=== PATIENT | male | born 1990 ===

== ENCOUNTER → 2021-04-12 12:11 | Outpatient (ROUT) | payer OTHER, SELFPAY ==
[2021-04-12 13:43] LABS: Urine N gonorrhoeae NOT DETECTED
[2021-04-12 13:44] LABS: Urine Chlamydia NOT DETECTED
== END ==
PROVIDERS: Visit Provider Internal Medicine
DX: A74.9 Chlamydial infection, unspecified (principal)
CPT/HCPCS: 87491; 87591